=== PATIENT | male | born 1970 | race Caucasian/White ===

== ENCOUNTER 2017-04-06 13:12 | Emergency (ER) | payer OTHER ==
[2017-04-06] MEDS: methylPREDNISolone ACETATE 40 MG/ML VIAL IM ONE (13:45)
--- NOTE | 2017-04-06 13:50 | ED Physician Documentation ---
Wheezing - HISTORIAN Historian: patient, spouse - HPI Stated Complaint: allergic reaction Chief Complaint: Allergic Reaction Additional Information: Elan is seen today with c/o onset of hives yesterday evening. He has a history of chronic pancreatitis as well as H. pylori and has recently been placed on a course of Amoxicillin, clarithromycin and omeprazole. This was confirmed by Dr. Wilkinson last week when he had an endoscopic guided US/biopsy. He has now had 9 days of therapy. He denies any tightness in his throat or any evidence of dysphagia. Onset: hours Duration: continues in ED Initiating Event: other (Antibiotic therapy) Associated Symptoms:: denies: fever, sweating, trouble breathing, shortness of breath Current Asthma Therapy: none - ROS CONST: no problems EYES/ENT: denies: eye redness, eye itching CVS: denies: heart racing GI/: denies: none, abdominal pain MS/SKIN/LYMPH: denies: ankle swelling NEURO/PSYCH: denies: headache - PAST HX Asthma: denies: frequent attacks Lung Disease: none DVT/PE Risk Factors: none Other History: other (H. Pylori, chronic pancreatitis) Surgeries/Procedures: other (Rotator cuff, PE tubes, adenoids, hand surgery) Allergies/Adverse Reactions: Allergies Allergy/AdvReac Type Severity Reaction Status Date / Time No Known Allergies Allergy Verified 04/06/17 13:54 Home Medications: Ambulatory Orders Medication Instructions Recorded Amoxicillin [Trimox] 500 mg PO BID 04/06/17 Clarithromycin [Biaxin] 500 mg PO BID 04/06/17 Gemfibrozil [Lopid] 600 mg PO BID 04/06/17 Omeprazole [Prilosec] 40 mg PO DAILY 04/06/17 - SOCIAL HX Smoking History: greater than 1 pack/day Alcohol Use: none (States allergy (hives) to alcohol) - FAMILY HX Family History: denies: emphysema - VITAL SIGNS Vital Signs: Vital Signs Temp Pulse Resp BP Pulse Ox 98.8 F 79 16 125/74 98 04/06/17 13:12 04/06/17 13:12 04/06/17 13:12 04/06/17 13:12 04/06/17 13:12 Wheezing Physical Exam - EXAM General Appearance: mild distress EENT: eye inspection normal Neck: nml inspection Respiratory: no resp. distress CVS: reg rate & rhythm Abdomen: non-tender Skin: other (Multiple urticaria over his chest, back, arms) Extremities: non-tender Neuro/Psych: oriented x3 ED Results Lab/Radiology - Orders Orders: ED Orders Category Date Time Status methylPREDNISolone ACETATE [Depo-Medrol] Med 04/06/17 13:43 Discontinued 80 mg IM .STK-MED ONE Discharge Clincal Impression: Urticaria Referrals: Michelle Walker PRN [Primary Care Provider] - 2 Days Disposition: 01 HOME, SELF-CARE Decision to Admit: NO Date of Decison to Admit: 04/06/17 Decision Time: 13:53
[2017-04-06] MEDS ORDERED: methylPREDNISolone ACETATE 80 MG/ML VIAL IM ONE (13:54)
[2017-04-06 14:24] VITALS: BP 129/69
== END 2017-04-06 14:10 | disposition home or self-care (01) ==
LOC: ED 13:12
DX: L50.9 Urticaria, unspecified (principal)
CPT/HCPCS: 96372; 99283; J1030